=== PATIENT | female | born 1950 | race Caucasian/White ===

== ENCOUNTER 2019-02-16 10:18 | Outpatient (CLI) | payer MEDICARE ==
--- NOTE | 2019-02-16 15:06 | DEXA Report ---
Reason: OSTEOPENIA DISORDER OF BONE DENSITY STRUCTURE Procedure Date: 02/16/2019 Accession Number: [id number] / [id number] Procedure: DEX - Dexa Spine and/or Hip CPT Code: FULL RESULT: EXAM: Dexa Spine and/or Hip DATE: 02/16/2019 10:48 AM CLINICAL HISTORY: OSTEOPENIA DISORDER OF BONE DENSITY STRUCTURE TECHNIQUE: Dual energy x-ray absorptiometry (DXA) was performed on a [employer] System. Regions measured are the AP Spine, femoral neck, and if needed forearm. COMPARISON: None. In accordance with the International Society for Clinical Densitometry (ISCD) guidelines, data from previous exams may be reanalyzed using current recommendations and techniques. This is done to allow a more accurate basis for comparison with the current study. FINDINGS: The data for the lumbar spine is as follows: BMD (g/cm/cm) T-SCORE Z-SCORE REGION L1 0.745 -3.2 -1.9 L2 0.848 -2.9 -1.6 L3 1.112 -0.7 0.6 L4 1.143 -0.5 0.9 TOTAL 0.968 -1.8 -0.4 NOTE: All evaluable vertebrae are used for classification The data for the hip is as follows: BMD (g/cm/cm) T-SCORE Z-SCORE REGION Neck 0.726 -2.2 -0.9 TOTAL 0.778 -1.8 -0.8 NOTE: The femoral neck or total proximal femur, whichever is lowest, is used for classification. IMPRESSION: THE WHO CLASSIFICATION BASED ON THE INTERNATIONAL REFERENCE STANDARD IS OSTEOPENIA. THE FRACTURE RISK IS INCREASED. RECOMMENDATION: Patients with diagnosis of osteoporosis or osteopenia should have regular bone mineral density assessment. For those eligible for Medicare, routine testing is allowed once every 2 years. Testing frequency can be increased for patients who have rapidly progressing disease or for those who are receiving medical therapy to restore bone mass. COMMENT: World Health Organization (WHO) definitions for osteoporosis and osteopenia: NORMAL BMD: T-score at -1.0 or higher, fracture risk is low OSTEOPENIA BMD: T-score between -1.0 and -2.5, fracture risk is increased. OSTEOPOROSIS BMD: T-score at -2.5 or lower, fracture risk is high. National Osteoporosis Foundation recommends: 1. Obtain adequate dietary calcium (at least 1200 mg per day) and vitamin D (400-800 international units per day). 2. Participate, as appropriate, in regular weightbearing and muscle-strengthening exercise. 3. Avoid tobacco use and reduce alcohol and caffeine intake. 4. For more detailed information see the website at www.NOF.org.
== END 2019-02-16 10:19 | disposition home or self-care (01) ==
LOC: DI 10:18
PROVIDERS: ATTEND Family Medicine
DX: M85.89 Other specified disorders of bone density and structure, multiple sites (principal)
CPT/HCPCS: 77080

== ENCOUNTER 2019-02-16 10:20 | Outpatient (CLI) | payer MEDICARE ==
--- NOTE | 2019-02-22 15:16 | Mammography Report ---
Reason: SCREENING MAMMO Procedure Date: 02/16/2019 Accession Number: [id number] / [id number] Procedure: CON - Screening Mammo w/Albaro CPT Code: FULL RESULT: EXAM: Screening Mammo w/Albaro DATE: 02/16/2019 11:27 AM CLINICAL HISTORY: Screening encounter. History of late childbearing. TECHNIQUE: (B) - Bilateral CC and MLO views were obtained. COMPARISON: 06/16/2012. PARENCHYMAL PATTERN: (F) - The breast(s) demonstrate(s) diffuse fatty replacement. FINDINGS: There are no suspicious masses, calcifications, or areas of distortion. IMPRESSION: Negative examination. BI-RADS category 1. RECOMMENDATION: (ANNUAL) - Recommend routine annual screening mammography. BI-RADS CATEGORY: (1) - Negative. STANDARD QUALIFYING STATEMENTS: 1. This examination was not reviewed with the aid of Computer-Aided Detection (CAD). 2. A negative or benign imaging report should not preclude biopsy if clinically suspicious findings are present. 3. Dense breasts may obscure an underlying neoplasm. 4. This examination was reviewed with the aid of 3D breast imaging (tomosynthesis).
== END 2019-02-16 10:21 | disposition home or self-care (01) ==
LOC: DI 10:20
PROVIDERS: ATTEND Family Medicine
DX: Z12.31 Encounter for screening mammogram for malignant neoplasm of breast (principal)
CPT/HCPCS: 77063; 77067

== ENCOUNTER 2021-08-13 09:24 | Outpatient (CLI) | payer MEDICARE ==
--- NOTE | 2021-08-13 09:43 | XRAY Report ---
PROCEDURE: Lumbar Spine 2 View INDICATIONS: LOW BACK PAIN TECHNIQUE: 3 views of the lumbar spine were acquired. COMPARISON: None. FINDINGS: Bones: 5 pny-[id number]-enkisky vertebrae are present. Levocurvature of the lumbar spine. No vertebral bod y compression fractures. No suspicious bony lesions. Facet arthrosis, most prominent at L4-S1. Poss ible retrolisthesis at L2-3. Soft tissues: Overlying bowel gas pattern is normal. No suspicious soft tissue calcifications. IMPRESSION: No acute osseous abnormality. If the patient's pain persists, consider magnetic resonance imaging. Reviewed by: Byron Lynch MD on 08/13/2021 9:41 AM [facility] Approved by: Byron Lynch MD on 08/13/2021 9:41 AM [facility] Station ID: [id number]
== END 2021-08-13 09:25 | disposition home or self-care (01) ==
LOC: DI.S 09:24
PROVIDERS: ATTEND Internal Medicine
DX: M47.817 Spondylosis without myelopathy or radiculopathy, lumbosacral region (principal); M47.816 Spondylosis without myelopathy or radiculopathy, lumbar region

== ENCOUNTER 2022-02-14 08:00 | Outpatient (CLI) | payer MEDICARE ==
--- NOTE | 2022-02-14 12:23 | XRAY Report ---
PROCEDURE: Wrist 4 View RT INDICATIONS: RIGHT WRIST PAIN TECHNIQUE: 4 views of the wrist were acquired. COMPARISON: None FINDINGS: Bones: No fractures or dislocations. There is a transverse fracture of the distal radius with scler osis along the fracture line consistent with a healing remote fracture. The first carpometacarpal radha nt has degenerative changes. No suspicious bony lesions. Soft tissues: No suspicious soft tissue calcifications. IMPRESSION: Healing nondisplaced fracture of the right distal radius. Reviewed by: Jesus Fall on 02/14/2022 12:22 PM PDT Approved by: Jesus Fall on 02/14/2022 12:22 PM PDT Station ID: [id number]
== END 2022-02-14 23:59 | disposition home or self-care (01) ==
LOC: DI.S 08:00
PROVIDERS: ATTEND Emergency Medicine
DX: S52.501D Unspecified fracture of the lower end of right radius, subsequent encounter for closed fracture with routine healing (principal)

== ENCOUNTER 2022-03-05 12:48 | Outpatient (CLI) | payer MEDICARE ==
--- NOTE | 2022-03-05 17:08 | DEXA Report ---
PROCEDURE: Dexa Spine and/or Hip INDICATIONS: OSTEOPENIA TECHNIQUE: Dual energy x-ray absorptiometry (DXA) was performed on a [employer] System. Regions measur ed are the AP Spine, femoral neck, and if needed forearm. COMPARISON: DEXA 02/16/2019 FINDINGS: Lumbar Spine: Bone Mineral Density 1.049 g/cm/cm,T score -1.1, compared to -1.8 Left Hip: Bone Mineral Density 0.769 g/cm/cm,T score 1.9, compared to -1.8 Left Femoral Neck: Bone Mineral Density 0.680 g/cm/cm, T score -2.6, compared to -2.2 (T score greater or equal to -1.0: NORMAL) (T score from -1.1 to -2.4: OSTEOPENIA) (T score less than or equal to -2.5 to: OSTEOPOROSIS) Impression: Osteoporosis within the femoral neck progressive compared to prior exam. Improved bone mineral density within the lumbar spine now minimal osteopenia. Patients with diagnosis of osteoporosis or osteopenia should have regular bone mineral density assess ment. For those eligible for Medicare, routine testing is allowed once every 2 years. Testing frequ ency can be increased for patients who have rapidly progressing disease or for those who are receivin g medical therapy to restore bone mass. Reviewed by: Andria Cesar MD on 03/05/2022 5:06 PM PDT Approved by: Andria Cesar MD on 03/05/2022 5:06 PM PDT Station ID: [id number]
== END 2022-03-05 12:49 | disposition home or self-care (01) ==
LOC: DI 12:48
PROVIDERS: ATTEND Nurse Practitioner Family
DX: M81.0 Age-related osteoporosis without current pathological fracture (principal)

== ENCOUNTER 2022-04-04 13:23 | Outpatient (CLI) | payer MEDICARE ==
--- NOTE | 2022-04-04 17:04 | Ultrasound Report ---
PROCEDURE: Head or Neck Soft Tissue INDICATIONS: HYPOTHYROIDISM TECHNIQUE: Real-time scanning was performed of the thyroid gland, with image documentation. COMPARISON: None. FINDINGS: Right: Thyroid lobe measures 4.1 x 1.1 x 1.4 cm, and is homogeneous in echotexture. Left: Thyroid lobe measures 4.2 x 0.8 x 1.0 cm, and is homogenous in echotexture. Isthmus: 1 mm thick. A 5 mm colloid cyst is present at the upper left lobe of the thyroid gland. Imaging follow-up is not necessary for this finding. No solid thyroid nodules visualized. IMPRESSION: 1. Unremarkable size and echotexture of the thyroid gland. 2. No thyroid nodules visualized. Reviewed by: Soto Garcia MD on 04/04/2022 5:02 PM PDT Approved by: Soto Garcia MD on 04/04/2022 5:02 PM PDT Station ID: [id number]
== END 2022-04-04 13:24 | disposition home or self-care (01) ==
LOC: DI 13:23
PROVIDERS: ATTEND Nurse Practitioner Family
DX: E03.9 Hypothyroidism, unspecified (principal)

== ENCOUNTER 2022-04-04 13:24 | Outpatient (CLI) | payer MEDICARE ==
--- NOTE | 2022-04-05 12:35 | Mammography Report ---
BILATERAL DIGITAL SCREENING MAMMOGRAM 3D/2D: 04/04/2022 CLINICAL: Routine screening. Comparison is made to exams dated: 02/16/2019 mammogram - [facility] and 06/16/2012 mammogram - [facility]. The tissue of both breasts is predominantly fatty. No significant masses, calcifications, or other findings are seen in either breast. There has been no significant interval change. IMPRESSION: NEGATIVE There is no mammographic evidence of malignancy. A 1 year screening mammogram is recommended. Based on the Tyrer Cuzick model (a risk assessment model) the patients lifetime risk is 4.1% and her 10 year risk is 2.4%. According to the ACR, ACS, and NCCN guidelines, an annual breast MRI exam bhavna g with mammogram is recommended if the patients lifetime risk is 20% or greater. This exam was interpreted at Station ID: [id number]. NOTE: For mammograms, a report in lay terms will be sent to the patient. Approximately 15% of breast malignancies will not be visualized mammographically. In the management of a palpable breast mass, a negative mammogram must not discourage biopsy of a clinically suspicious lesion. Electronically Signed By: Jesus Fall acr/penrad:04/04/2022 16:33:05 ACR BI-RADS Category 1: Negative 3341F PARENCHYMAL PATTERN: (F) - The breast(s) demonstrate(s) diffuse fatty replacement. BI-RADS CATEGORY: (1) - 1 RECOMMENDATION: (ANNUAL) - Recommend routine annual screening mammography. [id number] 1 year screening LATERALITY: (B)
== END 2022-04-04 13:25 | disposition home or self-care (01) ==
LOC: DI 13:24
PROVIDERS: ATTEND Nurse Practitioner Family
DX: Z12.31 Encounter for screening mammogram for malignant neoplasm of breast (principal); E03.9 Hypothyroidism, unspecified